=== PATIENT | male | born 1950 | race Caucasian/White ===

== ENCOUNTER 2017-07-13 16:05 | Inpatient (IN) ==
--- NOTE | 2017-07-13 16:44 | Emergency Department Report ---
General Adult HPI - General Stated complaint: Decreased mobility, cp, upper leg pain Time Seen by Provider: 07/13/17 16:43 - Related Data Home Medications Medication Instructions Recorded Confirmed Hydrocodone/APAP 5/325 [[place] 1 - 2 tab PO Q6H PRN 07/13/17 07/13/17 5/325] Lisinopril [Prinivil] 20 mg PO DAILY 07/13/17 07/13/17 hydroCHLOROthiazide 25 mg PO DAILY 07/13/17 07/13/17 [Hydrochlorothiazide] Allergies Allergy/AdvReac Type Severity Reaction Status Date / Time Penicillins Allergy Unknown Verified 07/13/17 16:42 Disposition Prescriptions: No Action hydroCHLOROthiazide [Hydrochlorothiazide] 25 mg PO DAILY Lisinopril [Prinivil] 20 mg PO DAILY Hydrocodone/APAP 5/325 [[place] 5/325] 1 - 2 tab PO Q6H PRN PRN Reason: Pain Referrals: Louis Grier MD [Family Provider] -
[2017-07-13] MEDS ORDERED: SALINE FLUSH 10ml SYRINGE IVF PRN (16:50)
[2017-07-13] MEDS ORDERED: NS 1,000 ML IV ONE (16:50)
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
--- OUTSIDE RECORDS SUMMARY | 2017-07-13 16:52 | External Medical Summary | Referral Summary ---
:1950 Author Organization [facility] [place] [address] Care Team Providers Name Role Phone Louis Grier Primary Care Physician Encounter VC Date(s): 06/21/15 - 06/21/15 [facility] [place] [address] [place] Discharge Diagnosis: Benign essential hypertension Discharge Diagnosis: Polyosteoarthritis Discharge Disposition: 01-Home or Self Care Attending Physician: Louis Grier MD Admitting Physician: Louis Grier MD Vital Signs Most recent to oldest [Reference Range]: 1 Temperature Tympanic [36.6-38.1 degC] 36.8 degC (06/21/15 4:17 PM) Peripheral Pulse Rate [60-100 bpm] 92 bpm (06/21/15 4:17 PM) Respiratory Rate [14-20 br/min] 22 br/min *HI* (06/21/15 4:17 PM) Blood Pressure [90-140/60-90 mmHg] 116/82 mmHg (06/21/15 4:17 PM) Problem List Condition Effective Dates Status Health Status Informant Benign essential hypertension Active (disorder)(Confirmed) Benign hypertension(Confirmed) Active Generalized osteoarthritis Active (disorder)(Confirmed) Osteoarthritis(Confirmed) Active Overweight(Confirmed) Active Ulcer(Confirmed) Active Allergies, Adverse Reactions, Alerts Substance Reaction Severity Status penicillin Itching Active Medications hydrochlorothiazide 25 mg oral tablet See Instructions, TAKE ONE TABLET BY MOUTH ONCE DAILY, # 30 tabs, 5 Refill(s), Pharmacy: [id number], TAKE ONE TABLET BY MOUTH ONCE DAILY Start Date: 12/28/14 Status: Orderedlisinopril 20 mg oral tablet 20 mg 1 tabs, Oral, Daily, # 30 tabs, 6 Refill(s), Pharmacy: [facility] Start Date: 12/20/14 Status: OrderedNorco [...] Visit Note Author: Louis Grier MD Date: 06/21/15 Assessment/Plan Benign essential hypertension Blood pressure iswell controlled. Medications reviewed no changes are recommended. I suggested6 month follow- up. Fasting labeither with her prior to that ap pointment. Problems or concerns before then he'll let me know. Ordered: Office Visit Level 3 Est 75788 Polyosteoarthritis Continue current treatment for arthritiswith hydrocodone on a when necessary basis. Ordered: Office Visit Level 3 Est 10655
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
--- OUTSIDE RECORDS SUMMARY | 2017-07-13 16:52 | External Medical Summary | Referral Summary ---
:1950 Author Organization [facility] [place] [address] Care Team Providers Name Role Phone Louis Grier Primary Care Physician Encounter VC Date(s): 12/20/15 - 12/20/15 [facility] [place] [address] [place] Discharge Diagnosis: Osteoarthritis Discharge Diagnosis: Elevated glucose Discharge Diagnosis: Benign essential hypertension Discharge Diagnosis: Overweight Discharge Disposition: 01-Home or Self Care Attending Physician: Louis Grier MD Admitting Physician: Louis Grier MD Vital Signs Most recent to oldest [Reference Range]: 1 Temperature Tympanic [36.6-38.1 degC] 37.1 degC (12/20/15 4:16 PM) Peripheral Pulse Rate [60-100 bpm] 100 bpm (12/20/15 4:16 PM) Respiratory Rate [14-20 br/min] 16 br/min (12/20/15 4:16 PM) Blood Pressure [90-140/60-90 mmHg] 122/80 mmHg (12/20/15 4:16 PM) Problem List Condition Effective Dates Status Health Status Informant Benign essential hypertension Active (disorder)(Confirmed) Benign hypertension(Confirmed) Active Generalized osteoarthritis Active (disorder)(Confirmed) Osteoarthritis(Confirmed) Active Overweight(Confirmed) Active Ulcer(Confirmed) Active Allergies, Adverse Reactions, Alerts Substance Reaction Severity Status penicillin Itching Active Medications hydrochlorothiazide 25 mg oral tablet See Instructions, TAKE ONE TABLET BY MOUTH ONCE DAILY, # 30 tabs, 5 Refill(s), eRx: [facility], TAKE ONE TABLET BY MOUTH ONCE DAILY Start Date: 11/26/15 Status: Orderedlisinopril 20 mg oral tablet See Instructions, TAKE ONE TABLET BY MOUTH ONCE DAILY, # 30 tabs, 5 Refill(s), eRx: [facility], TAKE ONE TABLET BY MOUTH ONCE DAILY Start Date: 11/26/15 Status: OrderedNorco 5 mg-325 mg oral tablet [...] Visit Note Author: Louis Grier MD Date: 12/20/15 Assessment/Plan 1.Benign essential hypertension Blood pressures well-controlled. I encouraged weight loss. Continue current medications without change. Recent laboratory studies reviewed and overall appear to bestable. Follow-up in 6 monthsfasting lab at that time. Ordered: Office Visit Level 3 Est 74282 2.Osteoarthritis Chronic stable no change in current treatment. Ordered: Office Visit Level 3 Est 24117 3.Overweight With his elevated glucoseand hypertension I strongly encouraged weight loss. Encouraged portion control and avoiding sweets. Some regular walking would be beneficial as well. She has ongoing problems or further difficulties he'll let us now. Ordered: Office Visit Level 3 Est 30709 4.Elevated glucose, Other abnormal glucose Encouraged weight loss. Monitor carefully recheck in 6 months with A1c. Ordered: Office Visit Level 3 Est 65422
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
--- OUTSIDE RECORDS SUMMARY | 2017-07-13 16:53 | External Medical Summary | Continuity of Care Document ---
:1950 Author Organization Via [facility] Allergies Active Description Code Type Severity Reaction Onset Reported/ Identified Relationship Clinical to Patient Status Yes penicillin NKMA N/A Itching 09/28/2013 Medications There is no data. Problems Date Dx Attending Type Code Diagnosis Diagnosed By Coded 12/20/2015 Marvel, Final E66.3 Overweight Louis K 12/20/2015 Marvel, Final I10 Essential (primary) Louis K hypertension 12/20/2015 Marvel, Final M19.90 Unspecified Louis K osteoarthritis, unspecified site 12/20/2015 Marvel, Final R73.09 Other abnormal Louis K glucose 06/26/2016 Marvel, Final I10 Essential (primary) Louis K hypertension 06/26/2016 Marvel, Final M15.9 Polyosteoarthritis, Louis K unspecified 06/26/2016 Marvel, Final G80.8 Other cerebral Louis K palsy 06/26/2016 Marvel, Final R60.9 Edema, unspecified Louis K 12/25/2016 Marvel, Final G80.8 Other cerebral Louis K palsy 12/25/2016 Marvel, Final I10 Essential (primary) Louis K hypertension 12/25/2016 Marvel, Final M15.9 Polyosteoarthritis, Louis K unspecified Procedures Code Description [place] [address] Office or other 12/20/2015 outpatient visit for the evaluation and management of an established patient, which requires at least 2 of these 3 moon components: An expanded problem focused history; An expanded prob 66713 Immunization 06/26/2016 administration (includes percutaneous, intradermal, subcutaneous, or intramuscular injections); 1 vaccine (single or combination vaccine/toxoid).. 80570 Influenza virus 06/26/2016 vaccine, trivalent, split virus, preservativ 43659 Pneumococcal 06/26/2016 polysaccharide vaccine, 23-valent (PPSV23), adult or immunosuppressed patient dosage, when administered to individuals 2 years or older, for subcutaneous or intramuscular use 33476 Office or other 06/26/2016 outpatient visit for the evaluation and management of an established patient, which requires at least 2 of these 3 moon components: A detailed history; A detailed examination; Medical d 08508 Office or other 12/25/2016 outpatient visit for the evaluation and management of an established patient, which requires at least 2 of these 3 moon components: An expanded problem focused history; An expanded prob Results Test Result Range Comprehensive Metabolic Panel (CMP) - 06/26/16 17:18 Albumin 3.9 g/dL 3.4-4.8 Alkaline Phosphatase 88 U/L 40-150 ALT (SGPT) 9 U/L 0-55 Anion Gap 12 NA 3-20 AST (SGOT) 9 U/L 5-34 Bilirubin Total 0.5 mg/dL 0.2-1.2 BUN 50 mg/dL 8-26 Calcium 8.5 mg/dL 8.9-10.5 Chloride 103 mEq/L 99-111 CO2 20 mEq/L 23-31 Creatinine 2.00 mg/dL 0.72-1.25 Globulin 4.0 g/dL 1.8-4.0 Glucose 116 mg/dL 70-99 Potassium 4.6 mEq/L 3.5-5.2 Protein 7.9 g/dL 6.0-7.6 Sodium 135 mEq/L 135-144 eGFR - 06/26/16 17:18 eGFR 33 mL/min >60 Encounters ACCT No. Visit Discharge Status Pt. Type Provider Facility Loc./Unit Complaint Date/Time [id number] 08/24/2013 08/24/2013 CLS Outpatient 10:35:00 23:59:59 [id number] 12/25/2016 12/25/2016 DIS Outpatient Marvel [facility] CDM HTN 03 16:25:00 23:59:[facility] [address] [id number] 06/26/2016 06/26/2016 DIS Outpatient Marvel, [facility] htn 38 16:06:00 23:59:00 [facility] [address] [id number] 12/20/2015 12/20/2015 DIS Outpatient Marvel, [facility] htn 20 16:10:00 23:59:00 [facility] [address] [id number] 06/21/2015 06/21/2015 DIS Outpatient Marvel, [facility] htn 93 15:59:00 23:59:00 [facility] [address] [id number] 03/22/2015 03/22/2015 DIS Outpatient Marvel, [facility] 3 MO NORM 17 16:02:00 23:59:00 Louis Castellanos [facility] [id number] 12/20/2014 12/20/2014 DIS Outpatient Marvel, [facility] 3 mo htn 41 15:54:00 23:59:00 Louis Castellanos [facility] [id number] 12/20/2014 Document 94 15:59:00 Registrati on
--- OUTSIDE RECORDS SUMMARY | 2017-07-13 16:53 | External Medical Summary | Referral Summary ---
:1950 Author Organization [facility] [place] [address] Care Team Providers Name Role Phone Louis Grier Primary Care Physician Encounter VC Date(s): 03/22/15 - 03/22/15 [facility] [place] [address] [place] Discharge Diagnosis: [...] DAILY, # 30 tabs, 5 Refill(s), Pharmacy: [facility], TAKE ONE TABLET BY MOUTH ONCE DAILY Start Date: 12/28/14 Status: Orderedlisinopril 20 mg oral tablet 20 mg 1 tabs, Oral, Daily, # 30 tabs, 6 Refill(s), Pharmacy: [facility] Start Date: 12/20/14 Status: OrderedNorco [...] Form: Injection Office Visit Level 3 Est 68095 Generalized osteoarthritis (disorder) Chronic stable no change in current treatment is recommended. Refills on hydrocodone provided. Ordered: Office Visit Level 3 Est 31969 Orders: HYDROcodone-acetaminophen, 1-2 tabs, Oral, q6hr, 2 week supply, # 60 tabs, 0 Refill(s)
--- OUTSIDE RECORDS SUMMARY | 2017-07-13 16:53 | External Medical Summary | Referral Summary ---
:1950 Author Organization [facility] [place] [address] Care Team Providers Name Role Phone Louis Grier Primary Care Physician Encounter VC Date(s): 12/20/14 - 12/20/14 [facility] [place] [address] [place] Discharge Diagnosis: [...] BY MOUTH ONCE DAILY, # 30 tabs, eRx: [facility], TAKE ONE TABLET BY MOUTH ONCE DAILY Start Date: 06/29/15 Status: Orderedlisinopril 20 mg oral tablet 20 mg 1 tabs, Oral, Daily, # 30 tabs, 6 Refill(s), Pharmacy: [facility] Start Date: 12/20/14 Status: OrderedNorco [...] time. Ordered: Office Visit Level 3 Est 93233 Degenerative joint disease involving multiple joints Chronic stable no change in current treatment. Ordered: Office Visit Level 3 Est 66307 Overweight Encouraged weight loss. Ordered: Office Visit Level 3 Est 88049 Orders: lisinopril, 20 mg 1 tabs, Oral, Daily, # 30 tabs, 6 Refill(s), Pharmacy: [facility]
--- NOTE | 2017-07-13 19:09 | History & Physical Report ---
History of Present Illness Date: 07/13/17 Chief complaint: Weakness HPI: Dexter is a 67 year old male who presented to [facility] ED for further evaluation of weakness. He reports that there haven't been any changes in his health or oral intake -- however his brother Casimiro reports that Dexter has a hard time staying hydrated and in the past his centerless grinder tender, Dr. Rodriguez, recommended that Dexter drink plenty of fluids. In fact, he's had elevated renal functions in the past, which was thought to be secondary to dehydration. He last saw his PCP on 06/29/17 -- at that time BUN was 26 and creatinine was 1.12. He takes Lisinopril and HCTZ for HTN. Dexter denies any dizziness, falls, or syncope. He' s been using a walker over the last few days. He has had a hard time getting out of bed b/c of weakness. He denies f/c, cough/congestion, chest pain or SOA. No abdominal pain, n/v/d/c. He denies any changes with urination or retention, but when the Hansen was inserted in the ED his urine was quite concentrated. Labs showed AZRA with creatinine of 3.6 and BUN of 85, a 3-fold increase in creatinine from just 2 weeks earlier. WBC was slightly elevated at 11.9. Hgb slightly low at 12.4. He was given 1L of NS. He was also placed on 2L of oxygen d/t room air sat of 87%. Given his AZRA, the patient was admitted to inpatient status. LOS is expected to exceed 2 overnights for conservative approach at reversing AZRA -- at time of admission Dexter isn't sure if he'd want to proceed with dialysis or not. In addition, given hypoxia in the face of needed IVF, he is at risk for further respiratory decompensation. Review of Systems All systems PM: 10-point ROS was reviewed, no additional remarkable complaints except - Constitutional Constitutional: Absent: chills, fever(s) - EENMT Eyes: Present: requires corrective lenses. Absent: change in vision Nose: Absent: obstruction Mouth/Throat: Absent: sore throat, changes in swallowing - Cardiovascular Cardiovascular: Absent: chest pain, palpitations Vascular: Present: pedal edema - Respiratory Respiratory: Absent: cough, dyspnea - Gastrointestinal Gastrointestinal: Absent: abdominal pain, constipation, diarrhea, nausea, vomiting - Genitourinary Genitourinary: Absent: dysuria - Musculoskeletal Musculoskeletal: Present: muscle weakness - Integumentary/Breasts Integumentary: Absent: rash, wounds - Neurological Neurological: Present: weakness. Absent: confusion, dizziness, frequent falls, headache(s), numbness, paresthesias - Psychiatric Psychiatric: Absent: anxiety - Endocrine Endocrine: Absent: palpitations - Hematologic/Lymphatic Hematologic/Lymphatic: Absent: easy bleeding, easy bruising - Allergic/Immunologic Allergic/Immunologic: Absent: seasonal rhinorrhea Past Medical History HTN CP with left sided weakness and cognitive delay Obesity with BMI 35.6 Surgical History: Umbilical hernia 2011 (Dr. Sullivan). Hernia repair Family History Updates: Mother is still living at age 89. She has A-fib. Father of a heart attack around age 74. Dexter is 1 of 5 siblings. 2 brothers & 1 sister are healthy; his oldest sister has anemia. - Social History Smoking status: Never smoker Substance use type: does not use Alcohol intake frequency: does not drink Current occupational status: disabled Social history: PCP - [facility] - Jennifer Medications Home Medications Medication Instructions Recorded Confirmed Type Hydrocodone/APAP 5/325 [Wilmer 1 - 2 tab PO Q6H PRN 07/13/17 07/13/17 History 5/325] Lisinopril [Prinivil] 20 mg PO DAILY 07/13/17 07/13/17 History hydroCHLOROthiazide 25 mg PO DAILY 07/13/17 07/13/17 History [Hydrochlorothiazide] Allergies Allergy/AdvReac Type Severity Reaction Status Date / Time Penicillins Allergy Unknown Verified 07/13/17 16:42 Exam Vital Signs: Temperature 98.4 F 07/13/17 16:14 Pulse Rate 96 07/13/17 17:15 Respiratory Rate 19 07/13/17 17:15 Blood Pressure 107/58 07/13/17 17:01 Pulse Oximetry 94 07/13/17 17:15 Telemetry Rhythm: Sinus Rhythm - Constitutional Present: no acute distress, well nourished, well developed, obese - Routine HEENT Exam Head: Present: normocephalic Eye: Present: PERRL. Absent: conjunctival icterus, scleral injection ENT: Present: mucous membranes dry - Routine Neck Exam Present: supple - Routine Respiratory Exam Present: CTA bilaterally - Routine Cardiovascular Exam Present: RRR, S1, S2 - Routine Abdominal Exam Present: soft, normoactive bowel sounds, non tender - Routine Extremities Exam Present: edema (b/l lower ext.), normal capillary refill - Routine Skin Exam Present: intact, dry, warm - Routine Neurological Exam Present: alert, oriented X3 (at baseline), moving all extremities, normal speech - Routine Psychiatric Exam Present: normal affect, normal thought process, cooperative Results - Labs CBC & Chem 7: 07/13/17 17:11 07/13/17 17:11 Assessment and Plan (1) AZRA (acute kidney injury) Current visit: Yes Status: Acute Assessment and Plan: ADMISSION DIAGNOSES AZRA, suspect prerenal in nature Acute respiratory insufficiency, room air saturation 87% (POA) Hypernatremia (POA) Leukocytosis (POA) Myopathy Normocytic anemia CHRONIC CONDITIONS HTN CP with Cognitive delay and left sided weakness Obesity with BMI 35.6 PLAN Admit, inpatient status, under the hospitalist service. For AZRA, a Hansen was inserted in the ED for close I&O. -Will continue with IVF - 1/2 NS at 125 ml/hr. -Renal sono ordered. Hold ANABELLE and HCTZ. -Consider discussion with Dr. Rodriguez if kidneys fail to respond to IVF and holding nephrotoxic agents. Acute respiratory insufficiency -O2 to maintain sats. -CXR reviewed -- poor inspiratory effort; report pending. -encourage IS; albuterol PRN. Myopathy - consult PT/OT -Casimiro considering placement. Will consult CM to assist with DC planning. Code status: DNR. Brother, Casimiro, is his DPOA. PCP: Dr. Grier. Sydney Elevated lactate most likely secondary to AZRA and not infectious process. Not seeing other evidence for sepsis. DVT Prophylaxis: SCD's Resuscitation Status: Do Not Resuscitate - Physician Narrative Physician: Vincenzo Grimes MD Narrative: Date: 07/13/17 Time: 1999 Have independently interviewed and examine pt. Chart reviewed. Case discussed with ED physician, Pt's brother, and my FEDERAL APPELLATE LAW CLERK. Care plan developed with my supervision; agree with above. Not been feeling well the past 2-3 day-more tired and weak. Harder for him to get around and be active. No N/V. Stools stable. Not having increasing cough, congestion, or SOA. Patient lives independently, but has decrease cognitive and functional skill-receives additional care from [facility] and his brother. Presents to ED for evaluation. Lab showing significant elevation of creatinine to 3.6--was check end of Jun in clinic and normal at 1.1. Hx of prior AZRA- treated without dialysis. Pt is on ANABELLE and HCTZ. Brother worries oral intake and fluid intake always very poor. Pt placed in inpatient admission status for treatment of his AZRA-we anticipate greater than 2 midnights of care will be needed. Lungs: decreased, no crackles or distress CV: regular AB: soft obese nt/nd EXT: +1 BLE Plan: Inpatient admission. Hold ANABELLE and HCTZ. Hansen placed in ED. Start 1/2NS at 125cc/hr to help renal performance. Check Renal US. Will check ECHO secondary to cardiomegaly noted on CXR to make certain not a cardiac cause for his AZRA. Check CPK secondary to muscle pain to exclude rhabdo-lab pending. Elevated lactic acid most likely secondary to AZRA-not seeing other evidence for sepsis. PT/OT to help improve functional status. Monitor lab. Hospital Course Summary Disclaimer: The visit summary below is not to be considered part of the above Progress Note. Hospital Course: 07/13/17 Admit, inpatient status, under the hospitalist service. For AZRA, a Hansen was inserted in the ED for close I&O. -Will continue with IVF - 1/2 NS at 125 ml/hr. -Renal sono ordered. Hold ANABELLE and HCTZ. -Consider discussion with Dr. Rodriguez if kidneys fail to respond to IVF and holding nephrotoxic agents. Acute respiratory insufficiency -O2 to maintain sats. -CXR reviewed -- poor inspiratory effort; report pending. -encourage IS; albuterol PRN. Myopathy - consult PT/OT -Casimiro considering placement. Will consult CM to assist with DC planning. Code status: DNR. BrotherCasimiro, is his DPOA.
[2017-07-13] MEDS ORDERED: POLYETHYL GLYCOL 3350 17gm PACKET PO PRN (19:34)
[2017-07-13] MEDS ORDERED: BISACODYL 10 MG SUPPOSITORY RECTALLY PRN (19:34)
[2017-07-13] MEDS ORDERED: ONDANSETRON 4 MG/2 ML INJECTION IVP PRN (19:34)
[2017-07-13] MEDS: 1/2 NS 1,000 ML IV SCH (19:50)
[2017-07-13] MEDS: HYDROCODONE/APAP 5mg/325mg TABLET PO PRN (20:16)
[2017-07-13] MEDS ORDERED: ALBUTEROL 2.5mg/0.5ml (0.5%) NEB AEROSOL PRN (20:24)
[2017-07-13 20:47] VITALS: BMI 35.9
[2017-07-14] MEDS: HYDROCODONE/APAP 5mg/325mg TABLET PO PRN ×4 (03:09→23:58)
[2017-07-14] MEDS ORDERED: ALBUTEROL 2.5mg/3ml (0.083%) NEB AEROSOL PRN (07:30)
--- NOTE | 2017-07-14 08:08 | XRay Report ---
Indication: fevers body aches weakness PROCEDURE: XR chest 1V: Encounter: Initial Comparison: None FINDINGS: The lungs are clear. There is no abnormal airspace opacity, pleural effusion or pneumothorax identified. The heart size, pulmonary vasculature and mediastinum are within normal limits. No significant skeletal abnormality is seen. IMPRESSION: No acute cardiopulmonary abnormality. .
--- NOTE | 2017-07-14 08:11 | CT Scan Report ---
Indication: generalized weakness rule out stroke PROCEDURE: CT head/brain wo con: Encounter: Initial Comparison: None Technique: Axial CT images through the head were performed without contrast. Iterative Reconstruction dose reducing technique was utilized. 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 Agenesis of the corpus callosum. Dilatation of the remaining ventricular system is most likely chronic. No acute intracranial hemorrhage or territorial stroke. There is chronic leftward midline shift due to the large fluid-filled cystic cavity replacing the right frontal lobe. This measures up to 10 x 7.3 cm on axial image #37. This could represent a large arachnoid cyst as well. No acute calvarial fracture. 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 There is a preliminary report by virtual radi[facility]. .
--- NOTE | 2017-07-14 10:11 | Ultrasound Report ---
Indication: AZRA PROCEDURE: US renal BI: Encounter: Initial Comparison: None Technique: Grayscale and color Doppler sonographic imaging of both kidneys was performed. FINDINGS: Both kidneys are present with normal cortical thickness and echogenicity. No evidence for collecting system dilatation, contour deforming mass, nephrolithiasis, or abnormal perinephric fluid collection. The right kidney measures 11.9 cm in length, and the left kidney measures 12.8 cm in length. 3.1 cm simple appearing cyst on the lower pole of the left kidney. IMPRESSION: No hydronephrosis. .
--- NOTE | 2017-07-14 11:44 | Progress Note ---
- Date 07/14/17 Subjective: Patient is seen lying in bed eating ice cream. He reports that he does feel better. He has no complaints at this time other than he reports that he has a "bad attitude." No chest pain or shortness of breath. He had percent of his breakfast. He's not had a bowel movement but reports he's passing gas. Objective Vital signs: Temperature 98.7 F 07/14/17 08:00 Pulse Rate 76 07/14/17 08:00 Respiratory Rate 16 07/14/17 08:00 Blood Pressure 132/72 07/14/17 08:00 Pulse Oximetry 94 07/14/17 09:05 Height/Weight/BMI: Height 1.78 m Weight 114.5 kg Body Mass Index 35.9 - Constitutional Present: no acute distress, well nourished, well developed - Routine HEENT Exam Head: Present: normocephalic, atraumatic - Routine Respiratory Exam Present: CTA bilaterally. Absent: wheezes - Routine Cardiovascular Exam Present: RRR, no murmur - Routine Abdominal Exam Present: soft, non distended, non tender - Routine Extremities Exam Present: edema (1+ pedal edema bilaterally), normal capillary refill - Routine Skin Exam Present: dry, warm - Routine Neurological Exam Present: alert, moving all extremities - Routine Lymphatic Exam Lymphatic: Absent: adenopathy - Routine Psychiatric Exam Present: normal affect, cooperative Results - Labs CBC & Chem 7: 07/14/17 04:45 07/14/17 04:45 Assessment and Plan (1) AZRA (acute kidney injury) Current visit: Yes Status: Acute Assessment and Plan: ADMISSION DIAGNOSES AZRA, suspect prerenal in nature Acute respiratory insufficiency with hypoxemia, room air saturation 87% (POA) Hypernatremia (POA) -resolved Leukocytosis (POA) -resolved Myopathy Normocytic anemia CHRONIC CONDITIONS HTN CP with Cognitive delay and left sided weakness Obesity with BMI 35.6 PLAN Creatinine improved from 3.6 -->1.7 with IVF's and holding ANABELLE inhibitor and hydrochlorothiazide (which remain on hold.) Renal sono showed no hydronephrosis or other abnormality. Continues on IVF - 1/2 NS at 125 ml/hr. If patient continues to eat and drink well, may decrease or discontinue fluids. Also consider DC Hansen. DVT Prophylaxis: SCD's Resuscitation Status: Do Not Resuscitate - Physician Narrative Physician: Zabrina Horn MD Narrative: Date: 07/14/17 Time: 1809 I have independently evaluated and examined this patient. I reviewed the chart, the patient's history, and the SOIL FERTILITY EXTENSION SPECIALIST/PA's documented findings as above. We discussed and formulated the assessment and plan as above with additions as below: Mr. Tanner had no concerns when seen reporting his only problem is "women". He denied recent nausea, vomiting, or diarrhea. He denies fevers, chills, or lightheadedness. Physical therapy worked with him earlier today and recommended alf at discharge. NAD, alert Respirations nonlabored with good airflow, clear breath sounds Regular rhythm, Abdomen soft, nontender, hyperactive bowel sounds Right lower extremity is hypersensitivity to touch Renal function improving progressively with hydration; renal sonogram reviewed by myself-no evidence of hydronephrosis, 3 cm cyst lower left kidney. Continue hydration-resume normal saline since sodium level has normalized; blood pressure stable off lisinopril/HCTZ. May benefit from conversion to amlodipine or non-nephrotoxic regimen at discharge. Oxygen saturation 84% on room air earlier today-remains on 1-2 L supplemental oxygen during hospitalization but is not chronically on oxygen. Hospital Course Summary Disclaimer: The visit summary below is not to be considered part of the above Progress Note. Hospital Course: 07/13/17 Admit, inpatient status, under the hospitalist service. For AZRA, a Hansen was inserted in the ED for close I&O. -Will continue with IVF - 1/2 NS at 125 ml/hr. -Renal sono ordered. Hold ANABELLE and HCTZ. -Consider discussion with Dr. Rodriguez if kidneys fail to respond to IVF and holding nephrotoxic agents. Acute respiratory insufficiency -O2 to maintain sats. -CXR reviewed -- poor inspiratory effort; report pending. -encourage IS; albuterol PRN. Myopathy - consult PT/OT -Casimiro considering placement. Will consult CM to assist with DC planning. Code status: DNR. Brother, Casimiro, is his DPOA. 07/14/17 Creatinine improved from 3.6 -->1.7 with IVF's and holding ANABELLE inhibitor and hydrochlorothiazide (which remain on hold.) Renal sono showed no hydronephrosis or other abnormality. Continues on IVF - NS at 100 ml/hr. If patient continues to eat and drink well, may decrease or discontinue fluids. Also consider DC Hansen.
[2017-07-14] MEDS: 1/2 NS 1,000 ML IV SCH ×2 (12:29→23:05)
[2017-07-14] MEDS: NS 1,000 ML IV SCH (19:51)
[2017-07-15] MEDS: ACETAMINOPHEN 325 MG TABLET PO PRN ×2 (03:33→14:05)
[2017-07-15] MEDS: NS 1,000 ML IV SCH (06:11)
[2017-07-15] MEDS: HYDROCODONE/APAP 5mg/325mg TABLET PO PRN ×3 (09:08→22:21)
--- NOTE | 2017-07-15 09:15 | Echocardiogram ---
DATE OF SERVICE 07/14/2017 INDICATION Cardiomegaly. FINDINGS 1. CARDIAC CHAMBERS. Left-sided cardiac chambers are normal in size. Aortic root diameter is normal. RV appears borderline enlarged with fair contractility. Aortic root diameter is normal. 2. LEFT VENTRICLE. Analysis reveals borderline LVH. Wall thickness is at 12 mm in the posterior and septal wall. LV systolic function is normal. Wall motion analysis is normal. Ejection fraction is estimated at 65-70%. 3. VALVES. Aortic, mitral and tricuspid valve structure and motion appear normal for age. Normal valve excursion. 4. DOPPLER. Shows trace mitral regurgitation with normal systolic PA pressure of 29 mmHg. Normal flow velocities throughout. Slight sclerotic changes of the trileaflet aortic valve are noted. Trace pulmonic insufficiency is present. 5. No evidence of pericardial effusion, intracardiac masses, thrombi, vegetations or shunts. 6. Mild diastolic dysfunction, grade I/IV, is present. E/A ratio is 0.9 although E/E' ratio remains normal at 11.6. MVDT measured 320 milliseconds. IMPRESSION 1. Borderline RV enlargement with preserved contractility. 2. Normal LV systolic function, borderline LVH, mild diastolic dysfunction. 3. No significant valvular dysfunction. ADDENDUM (07/14/2017 at 1849) Tachycardia and dysrhythmia was seen intermittently during the study. MTDD
--- NOTE | 2017-07-15 09:57 | Progress Note ---
- Date 07/15/17 Subjective: Patient is seen sitting in bed. He has no current complaints. Eating 100% of meals. Feels like his bowels will be moving soon. Still requiring O2. Refused to walk or sit up with PT yesterday. Still requiring O2. Objective Vital signs: Temperature 97.4 F 07/15/17 08:50 Pulse Rate 83 07/15/17 08:50 Respiratory Rate 20 07/15/17 08:50 Blood Pressure 142/77 H 07/15/17 08:50 Pulse Oximetry 94 07/15/17 08:52 Height/Weight/BMI: Height 1.78 m Weight 113.9 kg Body Mass Index 35.9 - Constitutional Present: no acute distress, well nourished, well developed - Routine HEENT Exam Head: Present: normocephalic, atraumatic - Routine Respiratory Exam Present: CTA bilaterally. Absent: wheezes - Routine Cardiovascular Exam Present: RRR, no murmur - Routine Abdominal Exam Present: soft, non distended, non tender - Routine Extremities Exam Present: edema (1-2+ pitting pedal edema right greater than left), normal capillary refill - Routine Skin Exam Present: dry, warm - Routine Neurological Exam Present: alert, oriented X3 - Routine Lymphatic Exam Lymphatic: Absent: adenopathy - Routine Psychiatric Exam Present: normal affect, cooperative Results - Labs CBC & Chem 7: 07/15/17 04:19 07/15/17 04:19 Assessment and Plan (1) AZRA (acute kidney injury) Current visit: Yes Status: Acute Assessment and Plan: ADMISSION DIAGNOSES AZRA, suspect prerenal in nature Acute respiratory insufficiency with hypoxemia, room air saturation 87% (POA) Hypernatremia (POA) -resolved Leukocytosis (POA) -resolved Myopathy Normocytic anemia CHRONIC CONDITIONS HTN CP with Cognitive delay and left sided weakness Obesity with BMI 35.6 PLAN Creatinine continues to improve-->1.0. Blood pressures have been stable despite holding ANABELLE inhibitor and hydrochlorothiazide Patient is eating 100% of meals. Discontinue IV fluids. Start bladder training with Hansen. Work on weaning oxygen. He has refused to do much with physical therapy. Will likely need SNU on DC. DVT Prophylaxis: SCD's Resuscitation Status: Do Not Resuscitate - Physician Narrative Physician: Zabrina Horn MD Narrative: Date: 07/15/17 Time: 2099 I have independently evaluated and examined this patient. I reviewed the chart, the patient's history, and the STRAP FOLDING MACHINE OPERATOR/PA's documented findings as above. We discussed and formulated the assessment and plan as above with additions as below: Dexter complained of constipation reporting that she didn't 3 or 4 bowel movements since he had a bowel movement. Nursing had given him milk of magnesia earlier today and then a Dulcolax suppository without effect and he subsequently required disimpaction. Despite constipation patient reports his appetite was good today and denied dyspnea, palpitations, or lightheadedness. NAD, alert Respirations are nonlabored with clear breath sounds and he was on room air when seen this afternoon Regular cardiac rhythm Abdomen is soft, nontender, with active bowel sounds present Case management has spoken with the patient's brother regarding alf- Adan Causey consulted. Patient declined therapy today due to obstipation. IV fluids discontinued. Hospital Course Summary Disclaimer: The visit summary below is not to be considered part of the above Progress Note. Hospital Course: 07/13/17 Admit, inpatient status, under the hospitalist service. For AZRA, a Hansen was inserted in the ED for close I&O. -Will continue with IVF - 1/2 NS at 125 ml/hr. -Renal sono ordered. Hold ANABELLE and HCTZ. -Consider discussion with Dr. Rodriguez if kidneys fail to respond to IVF and holding nephrotoxic agents. Acute respiratory insufficiency -O2 to maintain sats. -CXR reviewed -- poor inspiratory effort; report pending. -encourage IS; albuterol PRN. Myopathy - consult PT/OT -Casimiro considering placement. Will consult CM to assist with DC planning. Code status: DNR. Brother, Casimiro, is his DPOA. 07/14/17 Creatinine improved from 3.6 -->1.7 with IVF's and holding ANABELLE inhibitor and hydrochlorothiazide (which remain on hold.) Renal sono showed no hydronephrosis or other abnormality. Continues on IVF - NS at 100 ml/hr. If patient continues to eat and drink well, may decrease or discontinue fluids. Also consider DC Hansen. 07/15/17 Creatinine continues to improve-->1.0. Blood pressures have been stable despite holding ANABELLE inhibitor and hydrochlorothiazide Patient is eating 100% of meals. Discontinue IV fluids. Start bladder training with Hansen. Work on weaning oxygen. He has refused to do much with physical therapy. Will likely need SNU on DC.
[2017-07-16 08:21] VITALS: BP 142/84; RESP 20; TEMP 98; O2SAT 94
[2017-07-16] MEDS: HYDROCODONE/APAP 5mg/325mg TABLET PO PRN (10:43)
[2017-07-16 11:01] VITALS: PULSE 96
--- NOTE | 2017-07-16 11:02 | Discharge Summary ---
Discharge Information Date of admission: 07/13/17 18:25 Anticipated date of discharge: 07/16/17 Attending Physician: Zabrina Horn MD Primary care physician: Louis Grier MD - Discharge Diagnosis (1) AZRA (acute kidney injury) Status: Acute AZRA, prerenal Dehydration on admission Acute respiratory insufficiency with hypoxemia, room air saturation 87% (POA) Hypernatremia (POA) -resolved Leukocytosis (POA) -resolved Constipation Myopathy Normocytic anemia HTN CP with Cognitive delay and left sided weakness Obesity with BMI 35.6 - Laboratory Labs: 07/15/17 04:19 07/16/17 04:28 - Radiology Radiology: Date of Exam: 07/13/17 Indication: generalized weakness rule out stroke PROCEDURE: CT head/brain wo con: FINDINGS: Markedly abnormal appearance of the brain with 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 Agenesis of the corpus callosum. Dilatation of the remaining ventricular system is most likely chronic. No acute intracranial hemorrhage or territorial stroke. There is chronic leftward midline shift due to the large fluid-filled cystic cavity replacing the right frontal lobe. This measures up to 10 x 7.3 cm on axial image #37. This could represent a large arachnoid cyst as well. No acute calvarial fracture. 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 Date of Exam: 07/13/17 Indication: fevers body aches weakness PROCEDURE: XR chest 1V: FINDINGS: The lungs are clear. There is no abnormal airspace opacity, pleural effusion or pneumothorax identified. The heart size, pulmonary vasculature and mediastinum are within normal limits. No significant skeletal abnormality is seen. IMPRESSION: No acute cardiopulmonary abnormality. Type of Exam(s): US echo doppler complete DATE OF SERVICE 07/14/2017 INDICATION Cardiomegaly. FINDINGS 1. CARDIAC CHAMBERS. Left-sided cardiac chambers are normal in size. Aortic root diameter is normal. RV appears borderline enlarged with fair contractility. Aortic root diameter is normal. 2. LEFT VENTRICLE. Analysis reveals borderline LVH. Wall thickness is at 12 mm in the posterior and septal wall. LV systolic function is normal. Wall motion analysis is normal. Ejection fraction is estimated at 65-70%. 3. VALVES. Aortic, mitral and tricuspid valve structure and motion appear normal for age. Normal valve excursion. 4. DOPPLER. Shows trace mitral regurgitation with normal systolic PA pressure of 29 mmHg. Normal flow velocities throughout. Slight sclerotic changes of the trileaflet aortic valve are noted. Trace pulmonic insufficiency is present. 5. No evidence of pericardial effusion, intracardiac masses, thrombi, vegetations or shunts. 6. Mild diastolic dysfunction, grade I/IV, is present. E/A ratio is 0.9 although E/E' ratio remains normal at 11.6. MVDT measured 320 milliseconds. IMPRESSION 1. Borderline RV enlargement with preserved contractility. 2. Normal LV systolic function, borderline LVH, mild diastolic dysfunction. 3. No significant valvular dysfunction. Tachycardia and dysrhythmia was seen intermittently during the study. Date of Exam: 07/14/17 Indication: AZRA PROCEDURE: US renal BI: FINDINGS: Both kidneys are present with normal cortical thickness and echogenicity. No evidence for collecting system dilatation, contour deforming mass, nephrolithiasis, or abnormal perinephric fluid collection. The right kidney measures 11.9 cm in length, and the left kidney measures 12.8 cm in length. 3.1 cm simple appearing cyst on the lower pole of the left kidney. IMPRESSION: No hydronephrosis. History of Present Illness HPI: Dexter is a 67 year old male who presented to [facility] ED for further evaluation of weakness. He reports that there haven't been any changes in his health or oral intake -- however his brother Casimiro reports that Dexter has a hard time staying hydrated and in the past his riprap placer, Dr. Rodriguez, recommended that Dexter drink plenty of fluids. In fact, he's had elevated renal functions in the past, which was thought to be secondary to dehydration. He last saw his PCP on 06/29/17 -- at that time BUN was 26 and creatinine was 1.12. He takes Lisinopril and HCTZ for HTN. Dexter denies any dizziness, falls, or syncope. He' s been using a walker over the last few days. He has had a hard time getting out of bed b/c of weakness. He denies f/c, cough/congestion, chest pain or SOA. No abdominal pain, n/v/d/c. He denies any changes with urination or retention, but when the Huerta was inserted in the ED his urine was quite concentrated. Labs showed AZRA with creatinine of 3.6 and BUN of 85, a 3-fold increase in creatinine from just 2 weeks earlier. WBC was slightly elevated at 11.9. Hgb slightly low at 12.4. He was given 1L of NS. He was also placed on 2L of oxygen d/t room air sat of 87%. Given his AZRA, the patient was admitted to inpatient status. LOS is expected to exceed 2 overnights for conservative approach at reversing AZRA -- at time of admission Dexter isn't sure if he'd want to proceed with dialysis or not. In addition, given hypoxia in the face of needed IVF, he is at risk for further respiratory decompensation. Objective Vital signs: Temperature 98.0 F 07/16/17 08:00 Pulse Rate 98 07/16/17 08:00 Respiratory Rate 20 07/16/17 08:00 Blood Pressure 142/84 H 07/16/17 08:00 Pulse Oximetry 94 07/16/17 08:00 Height/Weight/BMI: Height 1.78 m Weight 113.9 kg Body Mass Index 35.9 - Constitutional Present: no acute distress, well nourished, well developed - Routine HEENT Exam Head: Present: normocephalic, atraumatic - Routine Respiratory Exam Present: CTA bilaterally. Absent: wheezes - Routine Cardiovascular Exam Present: RRR, no murmur - Routine Abdominal Exam Present: soft, non distended, non tender - Routine Extremities Exam Present: edema (b/l pedal 1+R, 2+ L), normal capillary refill - Routine Skin Exam Present: dry, warm - Routine Neurological Exam Present: alert, oriented X3 - Routine Lymphatic Exam Lymphatic: Absent: adenopathy - Routine Psychiatric Exam Present: normal affect, cooperative Hospital Course This is a general summary of the patient's hospital course. For more details refer to the complete medical record. Hospital course: 07/13/17 Admit, inpatient status, under the hospitalist service. For AZRA, a Huerta was inserted in the ED for close I&O. -Will continue with IVF - 1/2 NS at 125 ml/hr. -Renal sono ordered. Hold ANABELLE and HCTZ. -Consider discussion with Dr. Rodriguez if kidneys fail to respond to IVF and holding nephrotoxic agents. Acute respiratory insufficiency -O2 to maintain sats. -CXR reviewed -- poor inspiratory effort; report pending. -encourage IS; albuterol PRN. Myopathy - consult PT/OT -Casimiro considering placement. Will consult CM to assist with DC planning. Code status: DNR. Brother, Casimiro, is his DPOA. 07/14/17 Creatinine improved from 3.6 -->1.7 with IVF's and holding ANABELLE inhibitor and hydrochlorothiazide (which remain on hold.) Renal sono showed no hydronephrosis or other abnormality. Continues on IVF - NS at 100 ml/hr. If patient continues to eat and drink well, may decrease or discontinue fluids. Also consider DC Huerta. 07/15/17 Creatinine continues to improve-->1.0. Blood pressures have been stable despite holding ANABELLE inhibitor and hydrochlorothiazide Patient is eating 100% of meals. Discontinue IV fluids. Start bladder training with Huerta. Work on weaning oxygen. He has refused to do much with physical therapy. Will likely need SNU on DC. 07/16/17 Has weaned off O2 and huerta has been removed. Patient DC'd to SNU at [place] today. Creatinine has stabilized. Needs further strengthening with PT/OT requiring skilled services. ANABELLE and HCTZ were DC'd d/t AZRA. Should he require BP medication they wish to consider alternate medications with less potential to impact renal function. Time spent with patient: discharge greater than 30 minutes Resuscitation Status: Do Not Resuscitate Discharge Plan - Discharge Disposition Discharge Date: 07/16/17 Disposition: [address] [facility] (SNF) *Condition: Improved Reason For Visit (Visit label in EMR): Acute kidney injury - Discharge Medications *Discharge Medications: Continue Hydrocodone/APAP 5/325 [[place] 5/325] 1 - 2 tab PO Q6H PRN #30 tab PRN Reason: Pain Discontinued hydroCHLOROthiazide [Hydrochlorothiazide] 25 mg PO DAILY Lisinopril [Prinivil] 20 mg PO DAILY - Discharge Packet/Instructions *Diet: Regular diet *Activity: As tolerated - work with PT/OT *Pain Management/Treatment: Hydocodone as ordered *Wound Care: n/a Additional Instructions: You were taken off of hydrochloothiazide and lisinopril. THese are blood pressure medications. If your blood pressures are too high, your doctor can start you on a different blood pressure medication that is safe for your kidneys. *Expected Signs/Symptoms: Gradual inprovement in strength *Notify Physician if: you develop chest pain, shortness of breath, fever. *During Business Hours Contact: Nurse at [place] *After Business Hours Contact: Nurse at [place] *Pending Lab/Results: No Pending Lab - Referrals/Follow Up *Referrals/Follow Up: Louis Grier MD [Family Provider] - (f-u w/ Dr. Grier after DC from SNU) - Patient Handouts Patient Handouts: Acute Kidney Injury (GEN) - Dismissal Complete Discharge Instructions are:: Complete Physician Narrative - Narrative Physician: Zabrina Horn MD Attestation Narrative: Date: 07/16/17 Time: 2049 I have independently evaluated and examined this patient. I reviewed the chart, the patient's history, and the VISUAL PRESENTATION MANAGER/PA's documented findings as above. We discussed and formulated the assessment and plan as above with additions as below: Dexter reports that he is eating and drinking well, voiding without difficulty, and had a second bowel movement yesterday without laxatives. His appetite is improving daily. He denied dyspnea but reports he still has generalized achiness. NAD, talkative Respirations nonlabored, good airflow, breath sounds clear Abdomen soft, obese, nontender, bowel sounds present Renal function continues to improve-creatinine has dropped from 3.6 on admission to 0.9 now with corresponding improvement in creatinine from 85 to 32. Stable for discharge. May benefit from addition of MiraLAX to help with bowel regimen chronically given significant constipation evident during hospitalization.
--- NOTE | 2017-07-16 11:26 | Extended Care Facility Orders ---
Admission Orders Admit to:: Assisted Allergies/Adverse Reactions: Allergies Penicillins Allergy (Unknown, Verified 07/13/17 16:42) Admitting Diagnosis: Acute kidney injury Admitting Physician: Zabrina Horn MD Attending Physician: Zabrina Horn MD Code Status: Do Not Resuscitate Anticiapted Length of Stay: 30 days or less Rehab Potential: fair Rehab Prognosis: fair Diet: Regular Wound/Incision Care: n/a May use Facility Protocol or Standing Orders: Yes May have flu vaccine: Yes Evaluations/Treatment: PT, OT Assisted Certification: I certify that SNF services are required to be given on an Inpatient basis because of the patients need for assisted care on a continuing basis for the condition(s) for which he/she received inpatient hospital services prior to his/her transfer to the SNF. SNF inpatient care is necessary for the following reasons Indication for Assisted: Med Admininistration, Other (PT/OT) - Additional Information In Event of Arrest: Do Not Start CPR Resident is Aware of Diagnosis: Yes Referrals: Louis Grier MD [Family Provider] - (f-u w/ Dr. Grier after DC from [facility]) Additional Orders: Check BMP to follow creatinine level in 1 wk. Call PCP if BP 's consistently >145/90
== END 2017-07-16 12:50 | DRG 683 ==
LOC: ED 16:05 → SUATTDRO 18:25 → MED 18:25
PROVIDERS: ADMIT Hospitalist; ATTEND Internal Medicine